=== PATIENT | male | born 1955 | race Caucasian/White ===

== ENCOUNTER 2018-08-11 14:18 | Inpatient (IN) ==
[2018-08-11] MEDS ORDERED: ASPIRIN CHEW 324 MG PO STA (15:09)
[2018-08-11 15:41] LABS: Basophils # (auto) 0.03 K/uL (0-0.2); Basophils % (auto) 0.4 %; Eosinophils # (auto) 0.17 K/uL (0-0.5); Eosinophils % (auto) 2.1 %; Hematocrit (blood only) 45.4 % (42-52); Hemoglobin 16.1 g/dL (14.0-18.0); Immature Granulocytes # (auto) 0.03 K/uL (0.00-0.02); Immature Granulocytes % (auto) 0.4 %; Lymphocytes # (auto) 2.25 K/uL (1.2-3.4); Mean Corpuscular Hgb Conc 35.5 g/dL (32-36); Mean Corpuscular Volume 104.6 fL (80-100); Mean Platelet Volume 9.7 fL (7.4-10.4); Monocytes # (auto) 0.64 K/uL (0.11-0.59); Neutrophils # (auto) 4.92 K/uL (1.4-6.5); Neutrophils % (auto) 61.1 %; Platelet Count 204 K/uL (130-400); RDW Standard Deviation 49.4 fL (36.4-46.3); Red Blood Count 4.34 M/uL (4.7-6.1); White Blood Count 8.04 K/uL (4.8-10.8)
[2018-08-11 15:45] LABS: pH VBG 7.42 (7.36-7.41)
[2018-08-11 16:03] LABS: Creatinine Clr Calc Pharmacy 125.8 ml/min; Est GFR (African American) 111.9; Est GFR (Non-African American) 96.6; Potassium 4.2 mmol/L (3.5-5.1)
[2018-08-11 16:10] LABS: Troponin I 0.102 ng/ml (0-0.045)
[2018-08-11] MEDS ORDERED: HEPARIN 25000 UNIT/500 ML D5W IV ONE (16:41)
[2018-08-11] MEDS ORDERED: HEPARIN SOD 5,000 UNIT/0.5 ML VIAL ONE (16:42)
--- NOTE | 2018-08-11 16:46 | History & Physical Report ---
Date of Service August 11, 2018 Assessment & Plan (1) Non-ST elevation NV (NSTEMI): Multiple risk factors for CAD including strong family history, obesity, active smoking, hyperlipidemia, hypertension that is uncontrolled. Plan to monitor on telemetry, trend daily EKGs, serial troponin, Lipitor 80, aspirin, metoprolol 12.5 every 12 hours. Continue heparin drip, cardiology consulted. N.p.o. after midnight in case of procedure. (2) HTN (hypertension): Currently uncontrolled on home enalapril 20 mg p.o. daily. Will give an additional dose this evening and cont to monitor once settled on the floor. Considered thiazides but would not pursue that with a h/o gout. (3) Smoker: Advised to quit smoking. (4) Hyperlipidemia: Lipid panel in a.m. Continue atorvastatin daily. (5) Osteoarthritis: Typically takes Aleve 220 mg daily. (6) Obesity: (7) DVT prophylaxis: Heparin drip Full code Disposition-PCU Barbara Valentine DO [facility] Hospitalist History of Present Illness Chief Complaint: difficulty breathing Primary Care Provider: Partha Adan MD 63-year-old smoker presents with acute episodes of shortness of breath has he was falling asleep this morning. He states he was sitting in his chair and nodding off when his head would move forward down to his chest he would suddenly get an episode of difficulty breathing which would then santos when he woke up and took some deep breaths. He otherwise denied any chest pain or other symptoms. He states that when he walked around he felt better. He is a moderately active gentleman who is retired and states he can climb a flight of stairs without stopping and without developing symptoms such as chest pain or shortness of breath. He is obese with a large neck and was questioned about sleep apnea. He denies ever having a sleep study. He states he feels rested when he awakens and denies any issues with headaches. He does admit to falling asleep easily when he sits down for a few minutes. He does admit to some orthopnea but states it is from his sinuses draining and therefore he cannot lay flat at night. He denies any history of paroxysmal nocturnal dyspnea. In the last 6 months he denies any recent weight gain but reports some generalized deconditioning over the last couple of years. He does smoke daily approximately half a pack a day. He does have a strong family history of coronary disease including a father who of an NV at 49 and a brother who had an NV of 40 with ultimately of CHF. In the ER he was given a full dose aspirin. Chest x-ray was normal, EKG was normal sinus rhythm with no evidence of active ischemia. Troponin was mildly positive at 0.102. His blood pressure was notably elevated to 169/109. In triage his blood pressure was directed 192/112. He takes regular enalapril 20 mg daily and has since he was in his 30s. Allergies Allergy/AdvReac Type Severity Reaction Status Date / Time Penicillins Allergy Mild Unknown Unverified 08/11/18 15:59 Sulfa (Sulfonamide Allergy Mild Unknown Unverified 08/11/18 15:59 Antibiotics) Home Medications Home Medications Medication Instructions Recorded Confirmed Type allopurinol 100 mg PO BID 08/11/18 08/11/18 History atorvastatin 20 mg PO DAILY 08/11/18 08/11/18 History enalapril maleate 20 mg PO DAILY 08/11/18 08/11/18 History glucosamine sulfate [Glucosamine] 500 mg PO BID 08/11/18 08/11/18 History naproxen sodium [Aleve] 220 mg PO DAILY 08/11/18 08/11/18 History omega 6-azs-myi-fish oil [Fish Oil] 1 cap PO TID 08/11/18 08/11/18 History Past Med/Surg History Medical History HTN (hypertension) (Chronic) Hyperlipidemia (Chronic) Obesity (Chronic) Smoker (Chronic) Osteoarthritis of left knee Surgical History No history of previous surgery (Chronic) Family History Father , of [place] @ 49 yo Coronary heart disease Brother , [place] age 40 Coronary heart disease CHF (congestive heart failure) Mother Lung cancer Brother Cancer Other Heart disease Social History Preferred Language: Swedish Communication Ability: Effective Beliefs That Will Affect Care: None marital status: Current Living Situation: Spouse and Family current occupational status: employed Other Information That Helps Us Care for You: No Feels Safe at Home: Yes Safety Concerns: Feels Safe At This Time Smoking Status: Current every day smoker Tobacco Type: cigarettes Do You Dip or Chew Tobacco: No Smoking End Date: last cigarette was yesterday, 08/10/18 Tobacco Cessation Education Requested by Patient: No Hx Alcohol Use: Yes Alcohol type: beer Hx Substance Use: No Review of Systems Review of Systems: At least ten systems were reviewed and negative except as indicated in HPI above. Physical Exam Physical Exam: CONSTITUTIONAL: obese, vitals as above, generally well- appearing EYES: normal conjunctivae, no scleral icterus ENT: MMM NECK: trachea midline, no JVD RESPIRATORY: coarse rhonchi at L base that is not pronounced but is present, ra les or wheezes, normal respiratory effort CARDIOVASCULAR: regular rate and rhythm, S1 and 2 heard without murmurs, gallops or rubs, no JVD, no peripheral edema GASTROINTESTINAL: normal bowel sounds, soft, nontender, no hepatomegaly, no guarding MUSCULOSKELETAL: strength 5/5 throughout, head is normocephalic and atraumatic, neck supple, normal palpation of chest wall without tenderness SKIN: warm and dry NEUROLOGIC: CN 2-12 grossly normal, no gross focal deficits. PSYCHIATRIC: alert cooperative and oriented to person, place and time. Results & Data Vital Signs (Past 12 Hours) Vital Signs Temp Pulse Pulse Resp BP BP Pulse Ox 08/11/18 16:12 80 22 143/93 H 94 08/11/18 15:33 58 L 15 172/106 H 93 08/11/18 14:46 36.6 C 84 20 192/112 H 93 Laboratory Results Short CBC 08/11/18 Range/Units 15:30 WBC 8.04 (4.8-10.8) K/uL Hgb 16.1 (14.0-18.0) g/dL Hct 45.4 (42-52) % Plt Count 204 (130-400) K/uL BMP 08/11/18 15:30 Sodium 139 Potassium 4.2 Chloride 104 Carbon Dioxide 28 BUN 12 Creatinine 0.77 Glucose 109 H Calcium 9.0 Cardiac Enzymes 08/11/18 Range/Units 15:30 Troponin I 0.102 H* (0-0.045) ng/ml Diagnostic Findings XR chest 2V routine HISTORY: Sleep apnea. Atypical Chest Pain COMPARISON: None. FINDINGS: The cardiac silhouette is top normal in size. No pleural effusions. No pneumothorax. No focal lung consolidations to suggest pneumonia. No evidence for pulmonary edema. IMPRESSION: No acute process. Medications Administered ASA 324mg PO x 1 Heparin drip ECG Indication: SOB/dyspnea Rhythm: normal sinus Code Status & VTE Plan Code Status Full Code VTE Prophylaxis Plan VTE Prophylaxis will be ordered: Yes Critical Care Time Critical Care Time: No
[2018-08-11 17:01] LABS: Partial Thromboplastin Ratio 1.1; Prothrombin Time 10.6 Seconds (9.0-12.0)
--- NOTE | 2018-08-11 17:04 | XRay Report ---
XR chest 2V routine HISTORY: Sleep apnea. Atypical Chest Pain COMPARISON: None. FINDINGS: The cardiac silhouette is top normal in size. No pleural effusions. No pneumothorax. No foc al lung consolidations to suggest pneumonia. No evidence for pulmonary edema. IMPRESSION: No acute process. Electronically signed by: Beni Llanes M.D. 08/11/2018 5:02 PM
[2018-08-11] MEDS ORDERED: ACETAMINOPHEN 325 MG TAB PO PRN (17:56)
[2018-08-11] MEDS ORDERED: NITROGLYCERIN SL 0.4 MG/TAB TAB SL PRN (17:56)
[2018-08-11] MEDS ORDERED: ONDANSETRON INJ 2 MG/ML 2 ML VIAL IV PRN (17:56)
[2018-08-11] MEDS ORDERED: POLYETHYLENE (MIRALAX) 17 GM PACK PO PRN (17:56)
[2018-08-11] MEDS ORDERED: MoRPHine SULFATE 2 MG/ML CARP IV PRN (17:56)
[2018-08-11] MEDS ORDERED: ENALAPRIL MALEATE 10 MG TAB PO ONE (18:30)
[2018-08-11] MEDS: ATORVASTATIN 40 MG TAB PO SCH (18:51)
[2018-08-11] MEDS: Heparin Adult STANDARD Wt-Based Dextrose 5% 25,000 units/500 mL IV SCH (18:53)
--- NOTE | 2018-08-11 19:31 | Emergency Department Note ---
Entered by Lela Martínez acting as a scribe for History of Present Illness General Chief complaint: Respiratory Problems Stated complaint: BREATHING DIFFICULTY Time Seen by Provider: 08/11/18 14:51 Source: patient History of Present Illness Onset (ago): day(s) (a few days ago) Location: chest Pain Consistency: + other (episode) Quality: + other (respiratory problems) Exacerbated By: + other (sleeping) Associated symptoms: + denies other symptoms (falling asleep more than usual, falling asleep at inappropriate times, hemoptysis); no chest pain The patient is a 63 year old male who presents to the ED with complaints of an episode of difficulty breathing starting this morning when he woke. The patient states that this morning when he would nod off to sleep he would feel like he was having difficulty breathing. He notes that he is a smoker and had a stress test when he was 35, but nothing since then. The patient denies falling asleep more than usual, falling asleep at inappropriate times, chest pain, recent travel, hemoptysis, use of steroids, and a history of CHF. Home Medications Home Medications Medication Instructions Recorded Confirmed Type allopurinol 100 mg PO BID 08/11/18 08/11/18 History atorvastatin 20 mg PO DAILY 08/11/18 08/11/18 History enalapril maleate 20 mg PO DAILY 08/11/18 08/11/18 History glucosamine sulfate [Glucosamine] 500 mg PO BID 08/11/18 08/11/18 History naproxen sodium [Aleve] 220 mg PO DAILY 08/11/18 08/11/18 History omega 9-wib-gqz-fish oil [Fish Oil] 1 cap PO TID 08/11/18 08/11/18 History Allergies Allergy/AdvReac Type Severity Reaction Status Date / Time Penicillins Allergy Mild Unknown Unverified 08/11/18 15:59 Sulfa (Sulfonamide Allergy Mild Unknown Unverified 08/11/18 15:59 Antibiotics) Past Med/Surg History Medical History HTN (hypertension) (Chronic) Hyperlipidemia (Chronic) Obesity (Chronic) Smoker (Chronic) Osteoarthritis of left knee Surgical History No history of previous surgery (Chronic) Family History Father , of [place] @ 49 yo Coronary heart disease Brother , [place] age 40 Coronary heart disease CHF (congestive heart failure) Mother Lung cancer Brother Cancer Other Heart disease Social History Preferred Language: Georgian Communication Ability: Effective Beliefs That Will Affect Care: None marital status: Current Living Situation: Spouse and Family current occupational status: employed Other Information That Helps Us Care for You: No Feels Safe at Home: Yes Safety Concerns: Feels Safe At This Time Smoking Status: Current every day smoker Tobacco Type: cigarettes Do You Dip or Chew Tobacco: No Smoking End Date: last cigarette was yesterday, 08/10/18 Tobacco Cessation Education Requested by Patient: No Hx Alcohol Use: Yes Alcohol type: beer Hx Substance Use: No Review of Systems See HPI for pertinent positives & negatives. and A total of 10 systems reviewed and were otherwise negative Physical Exam Vital Signs Vital Signs - 24 hr 08/11/18 14:46 08/11/18 15:33 08/11/18 16:12 Temperature 36.6 C Temperature Source Oral Sepsis Recent Fever Within 48 Hours No Sepsis Action Taken by Nursing No Action Required Pulse Rate 84 Pulse Rate [Apical] 58 L 80 Respiratory Rate 20 15 22 Respiratory Effort / Characteristics Non-Labored Spontaneous Blood Pressure 192/112 H Blood Pressure [Right Arm] 172/106 H 143/93 H Blood Pressure Mean 138 Blood Pressure Mean [Right Arm] 128 109 Blood Pressure Position Sitting Blood Pressure Position [Right Arm] Sitting Pulse Oximetry 93 93 94 Oxygen Delivery Method Room Air Room Air Room Air 08/11/18 16:48 Temperature Temperature Source Sepsis Recent Fever Within 48 Hours Sepsis Action Taken by Nursing Pulse Rate Pulse Rate [Apical] 84 Respiratory Rate 19 Respiratory Effort / Characteristics Spontaneous Blood Pressure Blood Pressure [Right Arm] 158/102 H Blood Pressure Mean Blood Pressure Mean [Right Arm] 120 Blood Pressure Position Blood Pressure Position [Right Arm] Sitting Pulse Oximetry 94 Oxygen Delivery Method Room Air GENERAL: He is oriented to person, place, and time. He appears well-developed and well-nourished. He does not appear distressed. HENT: Exam performed. - Head: Normocephalic and atraumatic. - Right Ear: External ear normal. No mastoid tenderness. - Left Ear: External ear normal. No mastoid tenderness. - Mouth/Throat: The oropharynx is clear and moist. No trismus in the jaw. No dental abscesses or uvula swelling. No oropharyngeal exudate or tonsillar abscesses. EYES: Conjunctivae and EOM are normal. Pupils are equal, round, and reactive to light. Right eye exhibits no discharge. Left eye exhibits no discharge. No scleral icterus. NECK: Normal range of motion. Neck supple. No JVD present. No spinous process tenderness present. No carotid bruit present. No rigidity. No tracheal deviation and normal range of motion present. No Brudzinski's sign and no Kernig's sign noted. CV: Normal rate, regular rhythm, normal heart sounds and intact distal pulses. There is no peripheral edema. Palpable radial pulses bue. PULM/CHEST: Effort normal and breath sounds normal. No respiratory distress. No stridor. He has no wheezes. He has no rales. - Chest Wall: He exhibits no tenderness. ABD: The abdomen is soft. Bowel sounds are normal. He has no distension. No mass is present. There is no tenderness. There is no rebound, no guarding, no Jerez's sign and no tenderness at McBurney's point. Rovsig negative. MUSC/SKEL: Normal range of motion. There is no peripheral edema, tenderness or deformity. LYMPH: No cervical adenopathy. NEURO: He is alert and oriented to person, place, and time. He has normal strength. No cranial nerve deficit or sensory deficit. Coordination and gait normal. GCS eye subscore is 4. GCS verbal subscore is 5. GCS motor subscore is 6. Cerebellar tests wnl. SKIN: Skin is warm and dry. He is not diaphoretic. PSYCH: He has a normal mood and affect. Behavior is normal. Judgment and thought content normal. Course 1507: The patient was evaluated in room C9. A complete history and physical exam was performed. 1621: Vital signs are stable. The patient is currently not reporting any chest pain. He reports dyspnea. His troponin is elevated at 0.108. His creatinine and Pro BMP are within normal limits. The patient appears to be suffering from an N-STEMI. I discussed the patient's case with Dr. Rascon- Cardiology. I discussed starting Heparin on the patient and he agrees. He recommends a repeat EKG to make sure there are no dynamic changes. His repeat EKG shows no dynamic changes. I discussed the [facility] will evaluated the patient for further management. Consultations Consultation #1: I discussed the patient's case with Dr. Rascon- Cardiology. I discussed starting Heparin on the patient and he agrees. He recommends a repeat EKG. Time: 16:20 Consultation #2: I discussed the patient's case [facility] She will evaluated the patient for further management. Time: 16:26 Administered Medications Atorvastatin Calcium (Lipitor) 80 mg PO QAM [facility] Stop: 09/10/18 18:14 Last Admin: 08/11/18 18:51 Dose: 80 mg Documented by: [id number] Heparin Sodium/Dextrose (Heparin Sodium/Dextrose) 25,000 units in 500 mls @ 33 mls/hr IV .[id number] [facility]; Protocol Stop: 09/10/18 18:29 Last Admin: 08/11/18 18:53 Dose: 1,650 units/hr, 33 mls/hr Documented by: [id number] Cosigned by: [id number] Discontinued Medications Aspirin (Aspirin) 324 mg PO NOW STA Stop: 08/11/18 15:10 Last Admin: 08/11/18 15:15 Dose: 324 mg Documented by: [id number] Enalapril Maleate (Vasotec) 20 mg PO ONE ONE Stop: 08/11/18 18:31 Last Admin: 08/11/18 18:51 Dose: 20 mg Documented by: [id number] Heparin Sodium (Porcine) (Heparin Sodium (Porcine)) Confirm Administered Dose 10,000 units .ROUTE .STK-MED ONE Stop: 08/11/18 16:43 Last Admin: 08/11/18 16:45 Dose: 7,000 units Documented by: [id number] Cosigned by: [id number] Heparin Sodium/Dextrose () 1 ea IV NOW STA; Protocol Stop: 08/11/18 16:34 Last Admin: 08/11/18 16:46 Dose: 1 ea Documented by: [id number] Heparin Sodium/Dextrose (Heparin Sodium/Dextrose) Confirm Administered Dose 25,000 units IV .STK-MED ONE Stop: 08/11/18 16:42 Last Admin: 08/11/18 16:45 Dose: 33 ml Documented by: [id number] Cosigned by: [id number] Medical Decision Making Medical Records Attestation: I reviewed the patient's medical records. Home Medications Current Medication List: was personally reviewed by me Laboratory Data Attestation: I reviewed the patient's lab results. Result diagrams: 08/11/18 15:30 08/11/18 15:30 Lab Results 08/11/18 08/11/18 08/11/18 Range/Units 15:30 15:30 15:30 WBC 8.04 (4.8-10.8) K/uL RBC 4.34 L (4.7-6.1) M/uL Hgb 16.1 (14.0-18.0) g/dL Hct 45.4 (42-52) % MCV 104.6 H (80-100) fL MCH 37.1 H (25-34) pg MCHC 35.5 (32-36) g/dL RDW Std Deviation 49.4 H (36.4-46.3) fL RDW Coeff of West 13.0 (11.5-14.5) % Plt Count 204 (130-400) K/uL MPV 9.7 (7.4-10.4) fL Immature Gran % (Auto) 0.4 % Neut % (Auto) 61.1 % Lymph % (Auto) 28.0 % Cass % (Auto) 8.0 % Eos % (Auto) 2.1 % Baso % (Auto) 0.4 % Immature Gran # (Auto) 0.03 H (0.00-0.02) K/uL Neut # (Auto) 4.92 (1.4-6.5) K/uL Lymph # (Auto) 2.25 (1.2-3.4) K/uL Cass # (Auto) 0.64 H (0.11-0.59) K/uL Eos # (Auto) 0.17 (0-0.5) K/uL Baso # (Auto) 0.03 (0-0.2) K/uL PT (9.0-12.0) Seconds INR (0.9-1.1) APTT (21.0-31.0) Seconds PTT Ratio VBG pH (7.36-7.41) VBG pCO2 (38-50) mmHg VBG pO2 mmHg VBG HCO3 mmol/L VBG O2 Saturation % VBG Base Excess mEq/L Barometric Pressure mm/Hg Sodium 139 (136-145) mmol/L Potassium 4.2 (3.5-5.1) mmol/L Chloride 104 (98-107) mmol/L Carbon Dioxide 28 (21-32) mmol/L Anion Gap 7.0 (3-11) BUN 12 (7-18) mg/dl Creatinine 0.77 (0.6-1.4) mg/dl Est Cr Clr Drug Dosing 125.8 ml/min Est GFR ( Amer) 111.9 Est GFR (Non-Af Amer) 96.6 BUN/Creatinine Ratio 16.0 (10-20) Glucose 109 H (70-99) mg/dl Calcium 9.0 (8.5-10.1) mg/dl Troponin I 0.102 H* (0-0.045) ng/ml NT-Pro-B Natriuret Pep 538 (0-900) pg/ml 08/11/18 08/11/18 Range/Units 15:30 15:31 WBC (4.8-10.8) K/uL RBC (4.7-6.1) M/uL Hgb (14.0-18.0) g/dL Hct (42-52) % MCV (80-100) fL MCH (25-34) pg MCHC (32-36) g/dL RDW Std Deviation (36.4-46.3) fL RDW Coeff of West (11.5-14.5) % Plt Count (130-400) K/uL MPV (7.4-10.4) fL Immature Gran % (Auto) % Neut % (Auto) % Lymph % (Auto) % Cass % (Auto) % Eos % (Auto) % Baso % (Auto) % Immature Gran # (Auto) (0.00-0.02) K/uL Neut # (Auto) (1.4-6.5) K/uL Lymph # (Auto) (1.2-3.4) K/uL Cass # (Auto) (0.11-0.59) K/uL Eos # (Auto) (0-0.5) K/uL Baso # (Auto) (0-0.2) K/uL PT 10.6 (9.0-12.0) Seconds INR 1.0 (0.9-1.1) APTT 29.0 (21.0-31.0) Seconds PTT Ratio 1.1 VBG pH 7.42 H (7.36-7.41) VBG pCO2 46 (38-50) mmHg VBG pO2 41 mmHg VBG HCO3 29 mmol/L VBG O2 Saturation 77.0 % VBG Base Excess 4.0 mEq/L Barometric Pressure 728.7 mm/Hg Sodium (136-145) mmol/L Potassium (3.5-5.1) mmol/L Chloride (98-107) mmol/L Carbon Dioxide (21-32) mmol/L Anion Gap (3-11) BUN (7-18) mg/dl Creatinine (0.6-1.4) mg/dl Est Cr Clr Drug Dosing ml/min Est GFR ( Amer) Est GFR (Non-Af Amer) BUN/Creatinine Ratio (10-20) Glucose (70-99) mg/dl Calcium (8.5-10.1) mg/dl Troponin I (0-0.045) ng/ml NT-Pro-B Natriuret Pep (0-900) pg/ml Imaging Data Radiologist's Impression: Radiology results as stated below per my review and the radiologist's interpretation: XR chest 2V routine HISTORY: Sleep apnea. Atypical Chest Pain COMPARISON: None. FINDINGS: The cardiac silhouette is top normal in size. No pleural effusions. No pneumothorax. No focal lung consolidations to suggest pneumonia. No evidence for pulmonary edema. IMPRESSION: No acute process. Electronically signed by: Beni Llanes M.D. 08/11/2018 5:02 PM ECG Data Attestation: I personally reviewed and interpreted this ECG as follows: Indication: SOB/dyspnea Rate (beats per minute): 83 Rhythm: sinus rhythm Findings: + other (FL, QRS, and QT-c intervals are within normal limits); no ST depression and no ST elevation Additional Comments: REPEAT: Sinus rhythm at a rate of 79. FL, QRS, and QT-c intervals are within normal limits. No ST elevation or depression. Blood Pressure Blood Pressure Findings: Elevated blood pressure Blood Pressure Disposition: further management by hospitalist GIANLUCA Narrative Vital signs are stable. The patient is currently not reporting any chest pain. He reports dyspnea. His troponin is elevated at 0.108. His creatinine and Pro BMP are within normal limits. The patient appears to be suffering from an N- STEMI. I discussed the patient's case with Dr. Rascon- Cardiology. I discussed starting Heparin on the patient and he agrees. He recommends a repeat EKG to make sure there are no dynamic changes. His repeat EKG shows no dynamic changes. I discussed the patient's case with [facility] She will evaluated the patient for further management. Impression & Plan Non-ST elevation [place] (NSTEMI) Critical Care Time I have personally spent 63 minutes of critical care time in the direct management of this patient. This includes bedside care, interpretation of diagnostic studies, and testing, discussion with consultants, patient, and family members, and other required patient management activities. This 63 minutes is in excess of all separately billable procedures. Critical Care Time: Yes Total Critical Care Time: 63 Discharge Plan Visit Data *Final* Discharge Date/Time: 08/11/18 17:35 Chief Complaint: Respiratory Problems Stated Complaint: BREATHING DIFFICULTY ED Provider: Jef Harris Discharge Problem: Non-ST elevation [place] (NSTEMI) Patient Disposition: Being Evaluated by Hospitalist Discharge Instructions Interventions: ED Discharge Assessment Last Done: 08/11/18 17:35 The scribe's documentation has been prepared under my direction and personally reviewed by me in its entirety. I confirm that the note above accurately reflects all work, treatment, procedures, and medical decision making performed by me.
[2018-08-11] MEDS: METOPROLOL TARTRATE 25 MG TAB PO SCH (20:05)
[2018-08-11] MEDS: ALLOPURINOL 100 MG TAB PO SCH (20:06)
[2018-08-11] MEDS: OMEGA-3 (PURIFIED FISH OIL) 1 GM CAP PO SCH (20:06)
[2018-08-11] MEDS ORDERED: NON-FORMULARY MEDICATION (Glucosamine Sulfate [Glucosamine] 500 MG) PO SCH (21:00)
[2018-08-12 03:13] LABS: Hematocrit (blood only) 43.2 % (42-52); Hemoglobin 14.8 g/dL (14.0-18.0); Mean Corpuscular Hgb Conc 34.3 g/dL (32-36); Mean Corpuscular Volume 105.4 fL (80-100); Mean Platelet Volume 9.9 fL (7.4-10.4); Platelet Count 193 K/uL (130-400); RDW Coefficient of Variation 13.3 % (11.5-14.5); RDW Standard Deviation 51.5 fL (36.4-46.3); White Blood Count 7.24 K/uL (4.8-10.8)
[2018-08-12 03:33] LABS: BUN Creatinine Ratio 18.5 (10-20); Calcium 8.4 mg/dl (8.5-10.1); Creatinine Clr Calc Pharmacy 130.9 ml/min; Est GFR (African American) 113.8; Est GFR (Non-African American) 98.2; Magnesium 1.5 mg/dl (1.8-2.4); Partial Thromboplastin Ratio 1.8; Potassium 3.8 mmol/L (3.5-5.1)
[2018-08-12 03:36] LABS: Partial Thromboplastin Time 47.6 Seconds (21.0-31.0)
[2018-08-12 03:45] LABS: Troponin I 0.09 ng/ml (0-0.045)
[2018-08-12 05:59] LABS: Estimated Average Glucose 114 mg/dl; Hemoglobin A1C 5.6 % (4.5-5.6)
[2018-08-12] MEDS: Heparin Adult STANDARD Wt-Based Dextrose 5% 25,000 units/500 mL IV SCH (06:59)
[2018-08-12] MEDS ORDERED: ENALAPRIL MALEATE 10 MG TAB PO SCH (09:00)
[2018-08-12] MEDS ORDERED: ATORVASTATIN 20 MG TAB PO SCH (09:00)
[2018-08-12] MEDS: OMEGA-3 (PURIFIED FISH OIL) 1 GM CAP PO SCH ×3 (10:33→21:12)
[2018-08-12] MEDS: ASPIRIN 81 MG ECTAB PO SCH (10:34)
[2018-08-12] MEDS: METOPROLOL TARTRATE 25 MG TAB PO SCH ×2 (10:34→21:11)
[2018-08-12] MEDS: ALLOPURINOL 100 MG TAB PO SCH ×2 (10:35→21:11)
[2018-08-12] MEDS: ATORVASTATIN 40 MG TAB PO SCH (10:35)
[2018-08-12] MEDS ORDERED: SODIUM CHLORIDE 0.9% 1000ML 1,000 ML IV SCH (12:45)
--- NOTE | 2018-08-12 13:03 | Cardiology Consultation ---
Date of Consultation August 12, 2018 Assessment & Plan (1) Non-ST elevation [place] (NSTEMI): Patient presents with rest symptoms and with minimal exertion of chest pressure and shortness of breath. Symptoms newly limiting. Enzymes reflect non-ST segment elevation myocardial infarction though no EKG changes. Echocardiogram with wall motion abnormalities as noted Plan patient to proceed to diagnostic cardiac catheterization today. Procedure and risks have been explained in detail the patient informed consent will be obtained further recommendations pending the results of studies echocardiogram suggestive of multivessel disease (2) HTN (hypertension): Blood pressure substantially elevated on presentation now improved. Current complaints may be hypertensive mediated (3) Hyperlipidemia: History of Present Illness Reason for Consultation: Chest pain acute shortness of breath, non-ST segment elevation myocardial infarction Requesting Physician: Dr. Valentine Attending Physician: Barbara Valentine, History of Present Illness Patient is a 63-year-old male with multiple cardiac risk factors including hypertension, hyperlipidemia, chronic tobacco use, strong familial history of heart disease presented with symptoms of acute dyspnea worsening with minimal exertion over the past 1 to 2 days prior. He had several episodes occurred at rest possibly onset of sleep. Notes no tachypalpitations syncope or near syncope notes no melena hematochezia dysuria hematuria. No bleeding difficulties. No prior history rheumatic fever scarlet fever congestive heart failure myocardial infarction. Notes no planned surgeries. He has retired in the recent past has been very sedentary since doing so he attributes this in part to chronic arthritic complaints of his left knee. Appetite weighted been generally stable does admit to some sleep disturbance Allergies Allergy/AdvReac Type Severity Reaction Status Date / Time Penicillins Allergy Mild Unknown Unverified 08/11/18 15:59 Sulfa (Sulfonamide Allergy Mild Unknown Unverified 08/11/18 15:59 Antibiotics) Home Medications Home Medications Medication Instructions Recorded Confirmed Type allopurinol 100 mg PO BID 08/11/18 08/11/18 History atorvastatin 20 mg PO DAILY 08/11/18 08/11/18 History enalapril maleate 20 mg PO DAILY 08/11/18 08/11/18 History glucosamine sulfate [Glucosamine] 500 mg PO BID 08/11/18 08/11/18 History naproxen sodium [Aleve] 220 mg PO DAILY 08/11/18 08/11/18 History omega 3-acf-cfp-fish oil [Fish Oil] 1 cap PO TID 08/11/18 08/11/18 History Patient History Medical History HTN (hypertension) (Chronic) Hyperlipidemia (Chronic) Obesity (Chronic) Smoker (Chronic) Osteoarthritis of left knee Surgical History No history of previous surgery (Chronic) Family History Father , of [place] @ 49 yo Coronary heart disease Brother , [place] age 40 Coronary heart disease CHF (congestive heart failure) Mother Lung cancer Brother Cancer Other Heart disease Social History Preferred Language: Czech Communication Ability: Effective Beliefs That Will Affect Care: None marital status: Current Living Situation: Spouse and Family current occupational status: employed Other Information That Helps Us Care for You: No Feels Safe at Home: Yes Safety Concerns: Feels Safe At This Time Smoking Status: Current every day smoker Tobacco Type: cigarettes Do You Dip or Chew Tobacco: No Smoking End Date: last cigarette was yesterday, 08/10/18 Tobacco Cessation Education Requested by Patient: No Hx Alcohol Use: Yes Alcohol type: beer Hx Substance Use: No Review of Systems Review of Systems: As per HPI and otherwise negative Physical Exam Constitutional: WD/WN, vitals as above + obese Eyes: PERRL, conjunctivae normal, anicteric sclerae ENMT: external ear and nose normal, oropharynx normal Neck: Thick no distinct jugular venous distention or carotid bruit Respiratory: Auscultation: + diminished lung sounds Few scattered wheezes with cough Cardiovascular: Rate/Rhythm: regular rate and regular rhythm Heart Sounds: normal S1 and normal S2; no gallop and no murmur Palpation: + abnormal PMI Vessels: normal peripheral pulses, radial pulses present (2+) and ulnar pulses present; no JVD Extremities: + edema (Trace) Chest (Breasts): Chest: normal inspection of chest Results & Data Vital Signs (Past 12 Hours) Vital Signs Temp Pulse Resp BP Pulse Ox 08/12/18 11:40 36.9 C 75 18 134/77 92 08/12/18 07:23 36.7 C 78 20 156/87 H 92 08/12/18 03:50 36.7 C 70 19 124/77 93 Laboratory Results Laboratory Results - last 24 hr 08/11/18 08/11/18 08/11/18 15:30 15:30 15:30 WBC 8.04 RBC 4.34 L Hgb 16.1 Hct 45.4 MCV 104.6 H MCH 37.1 H MCHC 35.5 RDW Std Deviation 49.4 H RDW Coeff of West 13.0 Plt Count 204 MPV 9.7 Immature Gran % (Auto) 0.4 Neut % (Auto) 61.1 Lymph % (Auto) 28.0 Trigg % (Auto) 8.0 Eos % (Auto) 2.1 Baso % (Auto) 0.4 Immature Gran # (Auto) 0.03 H Neut # (Auto) 4.92 Lymph # (Auto) 2.25 Trigg # (Auto) 0.64 H Eos # (Auto) 0.17 Baso # (Auto) 0.03 PT INR APTT PTT Ratio VBG pH VBG pCO2 VBG pO2 VBG HCO3 VBG O2 Saturation VBG Base Excess Barometric Pressure Sodium 139 Potassium 4.2 Chloride 104 Carbon Dioxide 28 Anion Gap 7.0 BUN 12 Creatinine 0.77 Est Cr Clr Drug Dosing 125.8 Est GFR ( Amer) 111.9 Est GFR (Non-Af Amer) 96.6 BUN/Creatinine Ratio 16.0 Glucose 109 H Estimat Average Glucose Hemoglobin A1c Calcium 9.0 Magnesium Troponin I 0.102 H* NT-Pro-B Natriuret Pep 538 Triglycerides Cholesterol LDL Cholesterol, Calc VLDL Cholesterol, Calc HDL Cholesterol Cholesterol/HDL Ratio 08/11/18 08/11/18 08/11/18 15:30 15:31 18:42 WBC RBC Hgb Hct MCV MCH MCHC RDW Std Deviation RDW Coeff of West Plt Count MPV Immature Gran % (Auto) Neut % (Auto) Lymph % (Auto) Trigg % (Auto) Eos % (Auto) Baso % (Auto) Immature Gran # (Auto) Neut # (Auto) Lymph # (Auto) Trigg # (Auto) Eos # (Auto) Baso # (Auto) PT 10.6 INR 1.0 APTT 29.0 PTT Ratio 1.1 VBG pH 7.42 H VBG pCO2 46 VBG pO2 41 VBG HCO3 29 VBG O2 Saturation 77.0 VBG Base Excess 4.0 Barometric Pressure 728.7 Sodium Potassium Chloride Carbon Dioxide Anion Gap BUN Creatinine Est Cr Clr Drug Dosing Est GFR ( Amer) Est GFR (Non-Af Amer) BUN/Creatinine Ratio Glucose Estimat Average Glucose Hemoglobin A1c Calcium Magnesium Troponin I 0.121 H* NT-Pro-B Natriuret Pep Triglycerides Cholesterol LDL Cholesterol, Calc VLDL Cholesterol, Calc HDL Cholesterol Cholesterol/HDL Ratio 08/11/18 08/11/18 08/12/18 22:01 22:01 03:02 WBC RBC Hgb Hct MCV MCH MCHC RDW Std Deviation RDW Coeff of [place] Plt Count MPV Immature Gran % (Auto) Neut % (Auto) Lymph % (Auto) Trigg % (Auto) Eos % (Auto) Baso % (Auto) Immature Gran # (Auto) Neut # (Auto) Lymph # (Auto) Trigg # (Auto) Eos # (Auto) Baso # (Auto) PT INR APTT 53.0 H* 47.6 H* PTT Ratio 2.0 1.8 VBG pH VBG pCO2 VBG pO2 VBG HCO3 VBG O2 Saturation VBG Base Excess Barometric Pressure Sodium Potassium Chloride Carbon Dioxide Anion Gap BUN Creatinine Est Cr Clr Drug Dosing Est GFR ( Amer) Est GFR (Non-Af Amer) BUN/Creatinine Ratio Glucose Estimat Average Glucose Hemoglobin A1c Calcium Magnesium Troponin I 0.132 H* NT-Pro-B Natriuret Pep Triglycerides Cholesterol LDL Cholesterol, Calc VLDL Cholesterol, Calc HDL Cholesterol Cholesterol/HDL Ratio 08/12/18 08/12/18 08/12/18 03:02 03:02 03:02 WBC 7.24 RBC 4.10 L Hgb 14.8 Hct 43.2 MCV 105.4 H MCH 36.1 H MCHC 34.3 RDW Std Deviation 51.5 H RDW Coeff of West 13.3 Plt Count 193 MPV 9.9 Immature Gran % (Auto) Neut % (Auto) Lymph % (Auto) Trigg % (Auto) Eos % (Auto) Baso % (Auto) Immature Gran # (Auto) Neut # (Auto) Lymph # (Auto) Trigg # (Auto) Eos # (Auto) Baso # (Auto) PT INR APTT PTT Ratio VBG pH VBG pCO2 VBG pO2 VBG HCO3 VBG O2 Saturation VBG Base Excess Barometric Pressure Sodium 135 L Potassium 3.8 Chloride 102 Carbon Dioxide 29 Anion Gap 4.0 BUN 14 Creatinine 0.74 Est Cr Clr Drug Dosing 130.9 Est GFR ( Amer) 113.8 Est GFR (Non-Af Amer) 98.2 BUN/Creatinine Ratio 18.5 Glucose 118 H Estimat Average Glucose 114 Hemoglobin A1c 5.6 Calcium 8.4 L Magnesium 1.5 L Troponin I 0.090 H* NT-Pro-B Natriuret Pep Triglycerides 322 H Cholesterol 165 LDL Cholesterol, Calc 62 VLDL Cholesterol, Calc 64 HDL Cholesterol 39 Cholesterol/HDL Ratio 4 Diagnostic Findings 12-AUG-2018 07:34:48 [facility] ROUTINE RETRIEVAL Normal sinus rhythm Normal ECG When compared with ECG of 11-AUG-2018 16:25, (unconfirmed) No significant change was found Echocardiogram: Normal left exercise with moderate left hypertrophy segmental abnormalities are present with severe hypokinesis of the inferior and posterior [place] as well as apical septum EF 35% no significant valvular disease. There is aortic sclerosis without stenosis there is mild aortic root enlargement
[2018-08-12] MEDS ORDERED: NiCARDipine HCL INJ 2.5 MG/ML 10 ML AMP ONE (13:49)
[2018-08-12] MEDS ORDERED: MIDAZOLAM HCL 1 MG/ML 2ML VIAL ONE ×3 (13:49→17:09)
[2018-08-12] MEDS ORDERED: fentaNYL citrate 100 MCG/2 ML VIAL ONE ×2 (13:49→17:35)
[2018-08-12] MEDS ORDERED: NITROGLYCERIN/D5W 100MCG/ML 20ML SYR ONE (13:49)
[2018-08-12] MEDS ORDERED: HEPARIN (PORCINE) 1000 UNIT/ML 10 ML (CATH LAB USE ONLY) ONE (13:49)
--- NOTE | 2018-08-12 13:55 | Hospitalist Progress Note ---
Date of Service August 12, 2018 Assessment & Plan (1) Non-ST elevation [place] (NSTEMI): EF 40%, to shift lab technician today for 4 stents, denies chest pain. Denies SOB or other symptoms. Cont medical management per cardiology including aspirin 81 p.o. daily, Lipitor 80 mg p.o. every morning, enalapril 20 mg p.o. twice daily, Lopressor 25 mg p.o. twice daily, Plavix 75 p.o. daily. (2) HTN (hypertension): Currently uncontrolled on home enalapril 20 mg p.o. daily. Considered thiazides but would not pursue that with a h/o gout. Given additional dose of enalapril overnight with good result. Continue enalapril 20 mill grams p.o. twice daily. (3) Smoker: Advised to quit smoking. Patient agrees and will make attempt at discharge. (4) Hyperlipidemia: Triglycerides were elevated, however this should be repeated as outpatient. In the setting of NSTEMI Lipitor was increased, which may change lipid profile. Again, repeat as outpatient in 3 months time with primary care casey romero. (5) Osteoarthritis: Typically takes Aleve 220 mg daily. Held in setting of ACS. (6) Obesity: (7) DVT prophylaxis: Lovenox Full code Disposition-PCU Barbara Valentine DO [facility] Hospitalist Subjective s/p heart cath today with 4 stents placed. Doing well, asking for food. Denies any pain or shortness of breath. Daughter and are at bedside. All questions answered to their satisfaction. Review of Systems Review of Systems: All systems reviewed & are unremarkable except as noted in HPI & below Physical Exam Physical Exam: CONSTITUTIONAL: obese, vitals as above, generally well- appearing EYES: normal conjunctivae, no scleral icterus ENT: MMM NECK: trachea midline, no JVD RESPIRATORY: coarse rhonchi at L base that is not pronounced but is present, rales or wheezes, normal respiratory effort CARDIOVASCULAR: regular rate and rhythm, S1 and 2 heard without murmurs, gall ops or rubs, no JVD, no peripheral edema GASTROINTESTINAL: normal bowel sounds, soft, nontender, no hepatomegaly, no guarding MUSCULOSKELETAL: strength 5/5 throughout, head is normocephalic and atraumatic, neck supple, normal palpation of chest wall without tenderness, right radial pressure dressing in place. SKIN: warm and dry NEUROLOGIC: CN 2-12 grossly normal, no gross focal deficits. PSYCHIATRIC: alert cooperative and oriented to person, place and time. Results & Data Vital Signs (Past 12 Hours) Vital Signs Temp Pulse Resp BP Pulse Ox 08/12/18 11:40 36.9 C 75 18 134/77 92 08/12/18 07:23 36.7 C 78 20 156/87 H 92 08/12/18 03:50 36.7 C 70 19 124/77 93 Laboratory Results Short CBC 08/11/18 08/12/18 Range/Units 15:30 03:02 WBC 8.04 7.24 (4.8-10.8) K/uL Hgb 16.1 14.8 (14.0-18.0) g/dL Hct 45.4 43.2 (42-52) % Plt Count 204 193 (130-400) K/uL BMP 08/11/18 08/12/18 15:30 03:02 Sodium 139 135 L Potassium 4.2 3.8 Chloride 104 102 Carbon Dioxide 28 29 BUN 12 14 Creatinine 0.77 0.74 Glucose 109 H 118 H Calcium 9.0 8.4 L Cardiac Enzymes 08/11/18 08/11/18 08/11/18 Range/Units 15:30 18:42 22:01 Troponin I 0.102 H* 0.121 H* 0.132 H* (0-0.045) ng/ml 08/12/18 Range/Units 03:02 Troponin I 0.090 H* (0-0.045) ng/ml Medications Administered Current Inpatient Medications Acetaminophen (Tylenol) 650 mg PO Q4H PRN PRN Reason: Pain or Fever Stop: 09/10/18 17:55 Allopurinol (Zyloprim) 100 mg PO BID [facility] Stop: 09/10/18 20:59 Last Admin: 08/12/18 10:35 Dose: 100 mg Documented by: Aspirin (Ecotrin Ectab) 81 mg PO QAM [facility] Stop: 09/11/18 08:59 Last Admin: 08/12/18 10:34 Dose: 81 mg Documented by: Atorvastatin Calcium (Lipitor) 80 mg PO QAM [facility] Stop: 09/10/18 18:14 Last Admin: 08/12/18 10:35 Dose: 80 mg Documented by: Enalapril Maleate (Vasotec) 20 mg PO DAILY [facility] Stop: 09/11/18 08:59 Last Admin: 08/12/18 10:34 Dose: 20 mg Documented by: Fish Oil ([place]-3 (Purified Fish Oil)) 1 gm PO TID [facility] Stop: 09/10/18 20:59 Last Admin: 08/12/18 10:33 Dose: 1 gm Documented by: Heparin Sodium/Dextrose (Heparin Sodium/Dextrose) 25,000 units in 500 mls @ 33 mls/hr IV .[id number] [facility]; Protocol Stop: 09/10/18 18:29 Last Admin: 08/12/18 06:59 Dose: 1,650 units/hr, 33 mls/hr Documented by: Sodium Chloride (Nss 1000ml) 1,000 mls @ 58 mls/hr IV .[id number] [facility] Stop: 09/11/18 12:44 Metoprolol Tartrate (Lopressor) 12.5 mg PO BID [facility] Stop: 09/10/18 20:59 Last Admin: 08/12/18 10:34 Dose: 12.5 mg Documented by: Morphine Sulfate (Morphine Sulfate) 2 mg IV Q30M PRN PRN Reason: Chest Pain Stop: 08/25/18 17:55 Nitroglycerin (Nitrostat) 0.4 mg SL UD PRN PRN Reason: Chest Pain Stop: 09/10/18 17:55 Ondansetron HCl (Zofran) 4 mg IV Q6H PRN PRN Reason: Nausea Stop: 09/10/18 17:55 Polyethylene Glycol (Miralax Powder Packet) 17 gm PO DAILY PRN PRN Reason: Constipation Stop: 09/10/18 17:55
--- NOTE | 2018-08-12 15:06 | Cardiac Catheterization ---
Cardiac Cath Procedure Full Procedure Date August 12, 2018 Pre-Procedure Diagnosis Pre-Procedure Diagnosis: Non STEMI AUC Score AUC Score: 9 Post-Procedure Diagnosis Post-Procedure Diagnosis: Severe CAD and Decreased LV Systolic Function Procedure(s) Performed Procedure(s) Performed: Coronary Angiography, Left Heart Cath and LV Angiography Meal Cooker Saeed Rascon MD Collar Baster Jumpbasting(s) Ama Fierro Estimated Blood Loss Estimated Blood Loss: <15cc Medication(s) Medication(s): Fentanyl (12.5 mcg IV), Heparin (5000 units IV), Lidocaine 1% (Local infiltration access site), Nicardipine (300 mcg intra-arterial after arterial sheath inserted) and Versed (1 mg IV) Summary of Findings Right dominant coronary anatomy though with very large left coronary anatomy distribution Left main normal length and caliber with mild calcification but no obstruction Left anterior descending: The vessel is type III in distribution and gives rise to a large diagonal and a large septal branch in its mid proximal third a second moderate caliber diagonal in its midportion and coursing to terminate beyond the apex. Within the left anterior descending there is mild calcification with 50% narrowing in proximal portion, mild irregularities distal vessel Left circumflex: Very large but nondominant. Gives rise to very early trifurcating high marginal branch small second marginal branch and a large trifurcating obtuse marginal continuing along the AV groove giving rise to a large posterior lateral branch. There is moderate calcification in the midportion of the left circumflex and mild luminal irregularities but no obstruction. The distal right coronary artery fills via left to right collateral flow from the left circumflex Right coronary artery: Moderately large dominant vessel with subtotal occlusion mid vessel distal vessel fills via left to right collateral flow. Proximal midportion of the vessel is calcified LV angiography: Inferior base is akinetic there is diffuse hypokinesis other segments EF 40%. There is no mitral insufficiency LVEDP 18 Hemodynamics Rest Ao:: 145/89/108 Final Ao: 135/83/106 LV: 135/5/18 Recommendations Recommendations: PCI without planned CABG Specimens Specimens: None Radiation Exposure (mGy) 2374 Contrast (mls) 152 Fluids (cc crystalloids) Fluids (cc crystalloids): 57 Anesthesia Start time: 1400, stop time: 1429 Procedural Complication(s) None ACC Data: Summer Sessions Director Cardiac Status Clinical evaluation leading to the procedure CAD Presenation: Non STEMI Anginal Classification: CCS IV Heart Failure: No Cardiogenic Shock within 24 Hours: No Cardiac Arrest within 24 Hours: No Imaging Studies Past 6 Months: Yes Stress Studies Past 6 Months: No Standard Exercise Test: No Stress Echocardiogram: No Stress Testing w/SPECT MPI: No Cardiac CTA: No STEMI OR Non-STEMI Symptom Onset Date: 08/11/18 Symptom Onset Time: 14:00 Thrombolytics: No Coronary Anatomy Dominant: Right Left Main (% Stenosis): Normal LAD (% Stenosis): Proximal (50%) D1 (% Stenosis): Normal D2 (% Stenosis): Normal Circumflex (% Stenosis): Mid (Mild irregularities) OM1 (% Stenosis): Normal OM2 (% Stenosis): Normal OM3 (% Stenosis): Normal L PL1 (% Stenosis): Normal RCA (% Stenosis): Proximal (50) and Mid (99) Left Ventricular Angiography EF (%): 40 Wall Motion: Inferior Mitral Regurgitation: None Diagnostic Physicians Name: Saeed Rascon MD Status: Urgent Closure Device Percutaneous Entry Location: Radial Recommendations: PCI without planned CABG PCI Indication: PCI for high risk Non-ISRAEL
[2018-08-12] MEDS ORDERED: TICAGRELOR 90 MG TAB PO ONE (17:49)
--- NOTE | 2018-08-12 18:53 | Post Anesthesia Assessment ---
Date of Service August 12, 2018 Post Sedation Assessment Vital Signs Temp Pulse Resp BP Pulse Ox 08/12/18 11:40 36.9 C 75 18 134/77 92 08/12/18 07:23 36.7 C 78 20 156/87 H 92 08/12/18 03:50 36.7 C 70 19 124/77 93 08/11/18 22:43 36.6 C 72 20 131/80 93 08/11/18 19:59 37.1 C 80 22 150/87 H 92 Recovery Score Activity: Moves 4 extremities Respiration: Deep Breath/Cough Circulation: +/-20% PreAnes Value Consciousness: Fully Awake Oxygen Saturation: O2 needed for >90% Discharge Sedation Level of Care: Fast Track Phase II Post Sedation Plan On clinical assessment, the patient appears to have tolerated the sedation without complications. Patient is recovering as anticipated. Patient will continue to be monitored by nursing and may be discharged when sedation discharge criteria are met per below protocol. Upon Completions of procedure and additional 15 minutes continue every 5 minute vital signs and the P.A.R. score; then discharge to a Phase I or Fast Track to Phase II per the following guidelines: * Discharge Patient to appropriate Phase II area if PAR is 8 or greater or return to pre- procedure baseline. The post - procedure orders will be as directed. * If PAR score is less than 8 or not return to pre-procedure baseline then patient will follow Phase I monitoring till PAR is reached for Phase II. The Phase I may be done in procedure room or may call to secure a Phase I area. * If naloxone or flumazenil are used for reversal, hold in Phase I for continued monitoring from when last reversal dose was given for a minimum of 60 minutes or longer pending the nurse and/or physician discretion of patient condition before discharge to Phase II. Please call the Sedation Physician to re-evaluate and complete post-note for discharge to Phase II area. Do NOT discharge from procedure sedation or Phase 1 until post- sedation evaluation note is complete by procedure /sedation MD Sedation Discharge Instructions to be given to the patient at discharge to home.
[2018-08-12] MEDS ORDERED: SODIUM CHLORIDE 0.9% 500 ML IV SCH (19:45)
[2018-08-12] MEDS: ENALAPRIL MALEATE 10 MG TAB PO SCH (21:12)
--- NOTE | 2018-08-12 23:05 | Cardiac Catheterization ---
Cardiac Cath Procedure Full Procedure Date August 12, 2018 Pre-Procedure Diagnosis Pre-Procedure Diagnosis: Non STEMI AUC Score AUC Score: 8 Post-Procedure Diagnosis Post-Procedure Diagnosis: Severe CAD and Successful PCI Procedure(s) Performed Procedure(s) Performed: Coronary Angiography and Drug Eluting Stent Tool Design Draftsperson Aurelio Moura MD Chemist Assistant(s) Ama Fierro Estimated Blood Loss Estimated Blood Loss: <15cc Medication(s) Medication(s): Clopidogrel, Fentanyl (12.5 mcg IV), Heparin (5000 units IV), Nicardipine (300 mcg intra-arterial after arterial sheath inserted), Nitroglycerin and Versed (1 mg IV) Summary of Findings Indication: High risk NSTEMI Access: 6 Fr right radial artery Catheters: AR-1 guide, guideliner Findings: For full details of patient's coronary angiography please cath report dictated by Dr. Rascon. Briefly, patient found to have a calcified, subtotal occlusion of his mid RCA, severe distal RCA disease and distal PLB's filling in part via left to right collaterals. Decision to proceed with PCI. -- PCI -- Antithrombotic therapy: Heparin, clopidogrel Procedure: RCA cannulated with AR-1 guide Data Compiler 50 wire passed across mid RCA lesion, intraluminal wire position confirmed via injection through over the wire balloon Wire exchanged for [employer] wire Mid RCA dilated with 1.5, 2.0, 2.5 balloons. Balloon delivered with aid of guideliner due to tortuosity, heavy mid segment calcification. With balloon dilations noted to have mid RCA dissection Distal RCA stented with 2.25 x 18 mm Sky drug-eluting stent Second DAVID 2.75 x 38 mm [place] extended from initial distal stent back into mid segment Unable to deliver third DAVID 2.75 x 34 mm Sky to overlap with second stent and stent became lodged in proximal to mid aspect of vessel. Stent deployed in that location leaving midsegment gap between stents. Proximal stent postdilated with 3.0 NC balloon With aid of guide liner 4th drug-eluting stent (2.75 x 22 [place]) placed to mid segment overlapping third segment proximally, second stent distally. Stents postdilated with stent balloon to high atmospheres IC vasodilators administered for spasm Post procedure JESSICA 3 flow, stent well expanded with minimal residual stenosis and no apparent cardiac complications. Arterial Closure: TR band Summary: 1. Successful PCI of RCA subtotal occlusion with 4 overlapping drug-eluting stents from proximal to distal RCA (2.75 x 34, 2.75 x 22, 2.75 x 38, 2.25 x 18 [place]; postdilated with 3.0 NC). Recommendations: To PCU for continued monitoring Loaded with clopidogrel 600 mg in cath Continue dual-antiplatelet therapy for at least one year Continue statin, and ASCVD risk factor modification Consult cardiac Rehab Hemodynamics Rest Ao:: -- Final Ao: 125/78/99 LV: -- Recommendations Recommendations: PCI without planned CABG Specimens Specimens: None Radiation Exposure (mGy) 9191 (patient counseled on symptoms of radiation injury) Contrast (mls) 272 Fluids (cc crystalloids) Fluids (cc crystalloids): 400 Drains Drains: none Anesthesia moderate Procedural Complication(s) None Disposition PCU ACC Data: Aerodynamics Teacher Cardiac Status Clinical evaluation leading to the procedure CAD Presenation: Non STEMI Anginal Classification: CCS IV Heart Failure: No Cardiogenic Shock within 24 Hours: No Cardiac Arrest within 24 Hours: No Imaging Studies Past 6 Months: Yes Stress Studies Past 6 Months: No Diagnostic Physicians Name: Aurelio Moura MD Status: Elective Closure Device Percutaneous Entry Location: Radial Closure Device: Radial Band Recommendations: PCI without planned CABG PCI Indication: PCI for high risk Non-[place] Lesion Segment Name: mid RCA Culprit Artery: Yes Stenosis Prior to Rx (%): 99 Chronic Total Occlusion: No IVUS: No FFR: No Pre-Procedure JESSICA Flow: 2 Previously Treated Lesion: No Lesion Complexity: High/C Lesion Length (mm): 50 Thrombus Present: Yes Bifurcation Lesion: No Guidewire Across Lesion: Stenosis Post-Procedure (%): 0 Post-Procedure JESSICA Flow: 3 Devices(s) Deployed: Yes Yes Intraprocedure Events Significant Disection: No Perforation: No
[2018-08-13] MEDS: ENALAPRIL MALEATE 10 MG TAB PO SCH (08:47)
[2018-08-13] MEDS: OMEGA-3 (PURIFIED FISH OIL) 1 GM CAP PO SCH ×2 (08:47→14:36)
[2018-08-13] MEDS: ALLOPURINOL 100 MG TAB PO SCH (08:48)
[2018-08-13] MEDS: METOPROLOL TARTRATE 25 MG TAB PO SCH (08:48)
[2018-08-13] MEDS: ATORVASTATIN 40 MG TAB PO SCH (08:48)
[2018-08-13] MEDS: ASPIRIN 81 MG ECTAB PO SCH (08:49)
[2018-08-13] MEDS ORDERED: CLOPIDOGREL BISULFATE 75 MG TAB PO SCH (09:00)
[2018-08-13] MEDS ORDERED: ENOXAPARIN INJ 40 MG/0.4 ML SYR SQ SCH (09:00)
[2018-08-13 09:10] LABS: BUN Creatinine Ratio 16.5 (10-20); Calcium 9.8 mg/dl (8.5-10.1); Creatinine Clr Calc Pharmacy 123.4 ml/min; Est GFR (African American) 111.9; Est GFR (Non-African American) 96.6; Magnesium 1.7 mg/dl (1.8-2.4); Potassium 3.9 mmol/L (3.5-5.1)
[2018-08-13 09:47] LABS: Hematocrit (blood only) 45.8 % (42-52); Hemoglobin 16.4 g/dL (14.0-18.0); Mean Corpuscular Hgb Conc 35.8 g/dL (32-36); Mean Corpuscular Volume 104.1 fL (80-100); Mean Platelet Volume 10.2 fL (7.4-10.4); Platelet Count 214 K/uL (130-400); RDW Coefficient of Variation 13.3 % (11.5-14.5); RDW Standard Deviation 50.9 fL (36.4-46.3); White Blood Count 9.31 K/uL (4.8-10.8)
--- NOTE | 2018-08-13 09:58 | Cardiology Progress Note ---
Date of Service August 13, 2018 Assessment & Plan (1) Non-ST elevation VA (NSTEMI): Patient presents with rest symptoms and with minimal exertion of chest pressure and shortness of breath. Symptoms newly limiting. Enzymes reflect non-ST segment elevation myocardial infarction though no EKG changes. Echocardiogram with wall motion abnormalities inferior wall as well as diffuse Cardiac catheterization demonstrated high-grade subtotal occlusion of the right coronary with collateral fill. Acute versus chronic. Patient underwent successful coronary intervention with excellent revascularization. Suspect in part symptoms were due to hypertensive urgency superimposed on chronic coronary artery disease Plan: Treat hypertension and optimize medical regimen. Beta-ronnell begun with metoprolol 25 g twice per day atorvastatin increased to 80 mg p.o. daily enalapril increased to 20 mg twice per day. Hydrochlorothiazide 25 g/day will be added to regimen aid in blood pressure management as well as treat mild volume overload on exam Continue tobacco cessation, may require bronchodilator Cardiac rehab Follow-up [facility] cardiology 2 to 3 weeks time (2) HTN (hypertension): Blood pressure substantially elevated on presentation now improved. Current complaints may be hypertensive mediated (3) Hyperlipidemia: Subjective Chart medications telemetry reviewed. Patient restless overnight but notes no chest pain or discomfort. No overt orthopnea. Blood pressures are trending slightly lower. Right radial access site is healing. No bleeding difficulties. Continues to have a mild rhonchorous cough with forced expiration Review of Systems Review of Systems: As per HPI Physical Exam Constitutional: WD/WN, vitals as above + obese Eyes: PERRL, conjunctivae normal, anicteric sclerae ENMT: external ear and nose normal, oropharynx normal Respiratory: Auscultation: + diminished lung sounds and + wheezes (With forced cough) Cardiovascular: Rate/Rhythm: regular rate and regular rhythm Heart Sounds: normal S1 and normal S2; no gallop and no murmur Palpation: + abnormal PMI Vessels: normal peripheral pulses, radial pulses present (2+) and ulnar pulses present; no JVD Extremities: + edema (Trace) Chest (Breasts): Chest: normal inspection of chest Results & Data Vital Signs (Past 12 Hours) Vital Signs Temp Pulse Pulse Resp BP Pulse Ox 08/13/18 07:42 36.5 C 67 18 158/90 H 92 08/13/18 07:20 81 08/13/18 02:39 36.8 C 66 20 146/85 H 94 05/20/19 23:15 77 08/12/18 23:05 36.9 C 79 20 97/63 L 92 Laboratory Results Laboratory Results - last 24 hr 08/12/18 08/12/18 08/13/18 16:16 16:37 04:31 WBC RBC Hgb Hct MCV MCH MCHC RDW Std Deviation RDW Coeff of West Plt Count MPV APTT 28.0 PTT Ratio 1.0 Activ Coag Time Kaolin 181 H 235 H Sodium Potassium Chloride Carbon Dioxide Anion Gap BUN Creatinine Est Cr Clr Drug Dosing Est GFR ( Amer) Est GFR (Non-Af Amer) BUN/Creatinine Ratio Glucose Calcium Magnesium 08/13/18 08/13/18 04:36 04:36 WBC 9.31 RBC 4.40 L Hgb 16.4 Hct 45.8 MCV 104.1 H MCH 37.3 H MCHC 35.8 RDW Std Deviation 50.9 H RDW Coeff of West 13.3 Plt Count 214 MPV 10.2 APTT PTT Ratio Activ Coag Time Kaolin Sodium 137 Potassium 3.9 Chloride 104 Carbon Dioxide 27 Anion Gap 7.0 BUN 13 Creatinine 0.77 Est Cr Clr Drug Dosing 123.4 Est GFR ( Amer) 111.9 Est GFR (Non-Af Amer) 96.6 BUN/Creatinine Ratio 16.5 Glucose 121 H Calcium 9.8 D Magnesium 1.7 L
[2018-08-13] MEDS ORDERED: hydroCHLOROthiazide 25 MG TAB PO ONE (10:15)
[2018-08-13] MEDS: MAGNESIUM SULFATE / D5W 1 GM/100 ML BAG IV SCH ×2 (11:38→12:34)
--- NOTE | 2018-08-13 13:06 | Discharge Summary ---
Date of Service August 13, 2018 Admission HPI Per Admitting Provider 63-year-old smoker presents with acute episodes of shortness of breath has he was falling asleep this morning. He states he was sitting in his chair and nodding off when his head would move forward down to his chest he would suddenly get an episode of difficulty breathing which would then santos when he woke up and took some deep breaths. He otherwise denied any chest pain or other symptoms. He states that when he walked around he felt better. He is a moderately active gentleman who is retired and states he can climb a flight of stairs without stopping and without developing symptoms such as chest pain or shortness of breath. He is obese with a large neck and was questioned about sleep apnea. He denies ever having a sleep study. He states he feels rested when he awakens and denies any issues with headaches. He does admit to falling asleep easily when he sits down for a few minutes. He does admit to some orthopnea but states it is from his sinuses draining and therefore he cannot lay flat at night. He denies any history of paroxysmal nocturnal dyspnea. In the last 6 months he denies any recent weight gain but reports some generalized deconditioning over the last couple of years. He does smoke daily approximately half a pack a day. He does have a strong family history of coronary disease including a father who of an NC at 49 and a brother who had an NC of 40 with ultimately of CHF. In the ER he was given a full dose aspirin. Chest x-ray was normal, EKG was normal sinus rhythm with no evidence of active ischemia. Troponin was mildly positive at 0.102. His blood pressure was notably elevated to 169/109. In triage his blood pressure was directed 192/112. He takes regular enalapril 20 mg daily and has since he was in his 30s. Admission Exam Per Admitting Provider CONSTITUTIONAL: obese, vitals as above, generally well-appearing EYES: normal conjunctivae, no scleral icterus ENT: MMM NECK: trachea midline, no JVD RESPIRATORY: coarse rhonchi at L base that is not pronounced but is present, rales or wheezes, normal respiratory effort CARDIOVASCULAR: regular rate and rhythm, S1 and 2 heard without murmurs, gallops or rubs, no JVD, no peripheral edema GASTROINTESTINAL: normal bowel sounds, soft, nontender, no hepatomegaly, no guarding MUSCULOSKELETAL: strength 5/5 throughout, head is normocephalic and atraumatic, neck supple, normal palpation of chest wall without tenderness SKIN: warm and dry NEUROLOGIC: CN 2-12 grossly normal, no gross focal deficits. PSYCHIATRIC: alert cooperative and oriented to person, place and time. Principal Diagnosis Uncontrolled hypertension NSTEMI s/p PCI Discharge Data Allergies Allergy/AdvReac Type Severity Reaction Status Date / Time Penicillins Allergy Mild Unknown Unverified 08/11/18 15:59 Sulfa (Sulfonamide Allergy Mild Unknown Unverified 08/11/18 15:59 Antibiotics) Consultations 08/11/18 16:33 ED Decision to Admit Stat 08/11/18 18:22 Consult Cardiology Routine Procedures Performed Operation Date: 08/12/18 14:00 Actual Procedures p Cath, Left with Cors and Vent - Saeed Rascon MD s Cineradiography w/Routine Exam - Saeed Rascon MD s Drug Eluting Stent SGl Vessel - Gary Moura MD Ordered Studies 08/12/18 13:36 CL Cath Imgs for PACS use only Routine Hospital Course (1) Non-ST elevation NC (NSTEMI): (2) HTN (hypertension): (3) Smoker: (4) Hyperlipidemia: (5) Osteoarthritis: (6) Obesity: 63-year-old man who is an active smoker presented to the ER with symptoms of shortness of breath. Cardiac enzymes reflected and non ST elevation myocardial infarction although there were no EKG changes. He was admitted to the Hospitalist service and placed on IV heparin. Cardiac enzymes were trended without significant elevation. The following day his echocardiogram revealed an ejection fraction of 35 to 40% with wall motion abnormalities of the inferior, posterior tijerina and septal apex. A diagnostic cardiac catheterization was performed which resulted in severe CAD and four overlapping drug-eluting stents from proximal to distal RCA. The remainder of his hospitalization was to treat his hypertension and optimize his medical medical regimen. He was continued on twice daily enalapril, metoprolol 25 twice daily was started, atorvastatin was increased to 80 mg daily, hydrochlorothiazide 25 mg was added for additional blood pressure management. Continued tobacco cessation was strongly advised. Cardiac rehab is being considered. At time of discharge she was hemodynamically stable and asymptomatic. He was mentating and ambulating at baseline and tolerating p.o. Physical exam was unremarkable. He is to follow-up with cardiology office in 2 to 3 weeks time. Close primary care follow-up was also recommended for continued monitoring of the blood pressure. Lab work is recommended in 2 weeks time after starting new medical therapy. Total Time Total Time Spent Total Time Spent (In Minutes): 60 Discharge Plan Discharge Items Patient Disposition: Home - Self-Care Reason For Visit: NSTEMI Discharge Diagnosis: Uncontrolled hypertension NSTEMI s/p PCI Condition: Good Discharge Goals: Improve disease control Specific Goals: STOP SMOKING Activity: Per 'Additional Instructions' section Non-emergency contact: Primary Care Provider and [employer] Assistant Call non-emergency contact if: you have any medication questions, your symptoms worsen, your pain is not controlled and you have a fever Follow-up/Referrals: Partha Adan MD [Primary Care Provider] - Diet: Low Sodium (2gm) Addtl Provider Instructions: ACTIVITY RECOMMENDATIONS: Excess manipulation of the wrist should be avoided for the next 24-48 hours. * No lifting over 2 pounds (approximately a 1/2 gallon of milk) with the utilized arm for 24 hours. * No strenuous activity such as bowling or tennis for 3 days. * Keep the site of the procedure covered with a bandage for 24 hours. *You may shower the day after the procedure. Do not take a tub bath or submerge the puncture site in water for the next 3 days. *Do not operate any motorized equipment for 3 days. SPECIAL CARE INSTRUCTIONS: The site may be slightly bruised and sore following your procedure. Should any of the following occur, contact the Dr. who performed your procedure. 1. Redness/inflammation, swelling, chills, or fever, or colored drainage at procedure site within 3-7 days after your procedure. 2. Coldness, discoloration, ongoing numbness, severe pain, or swelling. Expect mild tingling of hand and tenderness at the puncture site for up to three days. If this persists beyond three days, or other symptoms develop, notify the Dr. who performed your procedure. BLEEDING: If the procedure site on your wrist begins to bleed, do not panic 1. Place 1 or 2 fingers firmly just slightly above the insertion site to stop the bleeding. You may be able to feel your pulse as you hold pressure. 2. Lift your finger after 5 minutes to see if the bleeding has stopped. 3. Once the bleeding has stopped, gently wipe the wrist area clean with a bandage. * If the bleeding from your wrist does not stop after 10 minutes, or if there is a large amount of bleeding or spurting, call 911 (do not drive yourself to the hospital). SKIN IRRITATION: * You may experience some redness and/or swelling in the area where radiation was administered. If any skin irritation occurs, please contact your family physician. ADDITIONAL PROVIDER INSTRUCTIONS: 1. Please take all medications as instructed on discharge list below. 2. It is recommended that you stop smoking and work on lifestyle modifications with your primary care physician. 3. You have the following appointment with your primary care provider: 08/20/2018 11:20 AM Partha Adan MD [facility] 4. Please followup with [facility] Cardiology in 2-3 weeks time. It was a pleasure taking care of you! Please call if you have any questions or problems. You can reach a [facility] hospitalist on duty at [facility] 24 hours a day by calling [phone]. Take care of yourself. Barbara Valentine, DO [facility] Hospitalist Prescriptions: New clopidogrel 75 mg Tablet 75 mg PO QAM Qty: 90 RF: 1 enalapril maleate 20 mg tablet 20 mg PO BID Qty: 60 RF: 0 atorvastatin 80 mg tablet 80 mg PO HS Qty: 90 RF: 1 metoprolol tartrate 25 mg Tablet 25 mg PO BID Qty: 60 RF: 0 nitroglycerin [Nitrostat] 0.4 mg Tablet, Sublingual 0.4 mg sublingual UD PRN (Reason: chest pain) Qty: 30 RF: 0 aspirin [Ecotrin Low Strength] 81 mg Tablet,Delayed Release (Dr/Ec) 81 mg PO QAM Qty: 90 RF: 1 hydrochlorothiazide 25 mg Tablet 25 mg PO QAM Qty: 30 RF: 1 Continued glucosamine sulfate [Glucosamine] 500 mg Tablet 500 mg PO BID RF: 0 allopurinol 100 mg tablet 100 mg PO BID RF: 0 omega [id number] oil [Fish Oil] 1,000 mg (120 mg-180 mg) Capsule 1 cap PO TID RF: 0 Discontinued atorvastatin 20 mg tablet 20 mg PO DAILY RF: 0 enalapril maleate 20 mg tablet 20 mg PO DAILY RF: 0 naproxen sodium [Aleve] 220 mg Capsule 220 mg PO DAILY RF: 0 Stand-Alone Forms: Replaced By [facility] Discharge Orders: Discharge Order (Routine); Ordered 08/13/18 Ordered By: Barbara Valentine Admission Data Admit Date/Time: 08/11/18 16:49 Attending Provider: Barbara Valentine Admit Provider: Barbara Valentine Primary Care Provider: Partha Adan Other Providers: Barbara Valentine ; Saeed Rascon Service: Telemetry Other Interventions: Discharge Summary Assessment (RN) Last Done: 08/13/18 14:20 DC Date/Time DO NOT enter until pt leaves facility: 08/13/18 14:55
[2018-08-14] MEDS ORDERED: hydroCHLOROthiazide 25 MG TAB PO SCH (09:00)
== END 2018-08-13 14:55 | disposition home or self-care (01) | DRG 246 ==
LOC: ED 14:18 → 2S 16:49